=== PATIENT | female | born 1935 | race Caucasian/White ===

== ENCOUNTER → 2018-03-22 | Day surgery (SDC) | payer OTHER ==
--- NOTE | 2018-03-21 09:40 | Diagnostic Imaging Report ---
PROCEDURE: X-RAY CHEST, TWO VIEWS COMPARISON: None. INDICATIONS: PRE-OP FINDINGS: Lungs remain well aerated. No focal consolidation, pleural effusion, or pneumothorax. Unchanged eventration of the right hemidiaphragm and multiple left upper lobe calcified granulomata. Stable cardiomediastinal contour with tortuosity of the thoracic aorta. Normal heart size without pulmonary edema. No acute osseous abnormalities. CONCLUSION: No acute cardiopulmonary abnormality. Dictated by: Jordan Davis M.D. on 03/21/2018 at 9:43 Electronically approved by: Jordan Davis M.D. on 03/21/2018 at 9:43
[2018-03-21 09:49] LABS: BASOPHILS % 0.3 % (0.0-1.0); EOSINOPHILS # (AUTO) 0.1 (0.0-0.4); EOSINOPHILS % 2.4 % (0.0-6.0); HEMATOCRIT 39.2 % (34.2-44.1); HEMOGLOBIN 13.1 g/dL (12.0-16.0); LYMPHOCYTES # (AUTO) 1.6 (1.0-3.2); LYMPHOCYTES % 27.7 % (18.0-39.1); MEAN CORPUSCULAR HEMOGLOBIN 32.6 pg (28-32); MEAN CORPUSCULAR HGB CONC 33.4 g/dL (31-35); MEAN CORPUSCULAR VOLUME 97.5 fL (81-99); MONOCYTES # (AUTO) 0.5 (0.2-0.8); MONOCYTES % 8.8 % (4.4-11.3); NEUTROPHILS # (AUTO) 3.5 (2.1-6.9); NEUTROPHILS % 60.6 % (38.7-80.0); PLATELET COUNT 159 x10e3/uL (140-360); RED BLOOD COUNT 4.02 x10e6/uL (3.6-5.1); RED CELL DISTRIBUTION WIDTH 12.9 % (11.7-14.4)
[2018-03-21 10:04] LABS: ANION GAP 12.5 mmol/L (8-16); BLOOD UREA NITROGEN 17 mg/dL (7-26); BUN/CREATININE RATIO 24 (6-25); CALCIUM 9.4 mg/dL (8.4-10.2); CARBON DIOXIDE 28 mmol/L (22-29); CHLORIDE 106 mmol/L (98-107); CREATININE, SERUM 0.71 mg/dL (0.57-1.11); EST GLOMERULAR FILTRATION RATE > 60 ML/MIN (60-); GLUCOSE 95 mg/dL (74-118); POTASSIUM 4.5 mmol/L (3.5-5.1); SODIUM 142 mmol/L (136-145)
[~2018-03-22] MED LIST: ACETAMINOPHEN 1000 MG/100 ML IV ONE; ALENDRONATE SOD70 MG PO; ASPIR 8181 MG PO; B COMPLEX WITH1 EACH PO; B12 SL; BIOTIN2500 MCG PO; BUPIVACAINE HCL 0.5% INJ 30 ML VIAL INJ ONE; CALCIUM600 MG PO; CALTRATE-600 W1 EACH PO; CEFAZOLIN SOD 1 GM VIAL ONE; CENTRUM SILVER1 EAC3 PO; CLOTRIMAZOLE-BE15 GM TOP; DEXAMETHASONE SOD PHOS INJ 4 MG/ML VIAL ONE; FENTANYL CITRATE/PF 100MCG/2 ML INJ ONE; FISH OIL 1,0001 EAC1 PO; FUROSEMIDE40 MG PO; LIDOCAINE HCL 2% LOCAL INJ 5 ML SDV VIAL INJ ONE; LOVENOX40 MG/0.4 SC; MAGNESIUM OXID400 MG PO; MELOXICAM15 MG PO; MUCINEX DM ER1 EACH PO; NORCO 7.5-3251 EACH PO; PANTOPRAZOLE SO40 MG PO; PHENYTOIN SODI300 MG PO; PRAVASTATIN SOD20 MG PO; PROPOFOL IV EMULSION 10 MG/ML 20 ML VIAL ONE; SEVOFLURANE INHAL SOLN 250 ML PEN BTL ONE; SULFAMETHOXAZO1 EAC1 PO; TYLENOL WITH C1 EACH PO; VIT D3 PO; VITAMIN E PO; [UNRECOGNIZED DRUG - OTHER] SL
--- OUTSIDE RECORDS SUMMARY | 2018-03-22 06:54 | XMS REPORT ---
Author [facility] Address Unknown Phone Unavailable Care Team Providers Care Company Marker Name Role Phone JOSEPHINEMILKA Unavailable Unavailable Problems This patient has no known problems. Allergies, Adverse Reactions, Alerts This patient has no known allergies or adverse reactions. Medications This patient has no known medications. Results Test Description Test Time Test Comments Text Results Atomic Results Result Comments CHEST 2 VIEWS [place] [id number] [place] [address] Patient Name: VISHAL CUEVA MR #: [id number] : 1935 Age/Sex: 83/F Req # : [id number] Adm Physician: Ordered by: SANDEEP YAN MD Report # : [id number] Location: OR Room/Bed: Procedure: [id number] DX/CHEST 2 VIEWS Exam Date: 03/21/18 Exam Time : 914 REPORT STATUS: Signed PROCEDURE: X-RAY CHEST, TWO VIEWS COMPARISON: None. INDICATIONS: PRE-OP FINDINGS: Lungs remain well aerated. No focal consolidation, pleural effusion, or pneumothorax. Unchanged eventration of the right hemidiaphragm and multiple left upper lobe calcified granulomata. Stable cardiomediastinal contour with tortuosity of the thoracic aorta. Normal heart size without pulmonary edema. No acute osseous abnormalities. CONCLUSION: No acute cardiopulmonary abnormality. Dictated by: Milka Sultana M.D. on 03/21/2018 at 9:43 Electronically approved by: Milka Sultana M.D. on 03/21/2018 at 9:43 Dictated By: MILKA SULTANA MD 2 Transcribed By: FRANSICO on 03/21/18942 COPY TO: SANDEEP YAN MD
--- NOTE | 2018-03-22 13:25 | Operative Report ---
DATE OF PROCEDURE: March 22, 2018 MATZO FORMING MACHINE OPERATOR: Humberto Colbert PA-C The patient was brought to the operating room for induction of anesthesia. Throughout this case, my PA's assistance was necessary for retraction of soft tissue and positioning of the extremity. This allows for efficient and technically successful execution of the operation and is considered medically necessary. 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 PROCEDURE: Right elbow excisional biopsy and the ulnar nerve decompression. 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 She has evidence of intrinsic atrophy in her right hand. She has numbness in the 4th and 5th digit. 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 The risks and benefits of surgical decompression and excisional biopsy have been explained. She states she understands and wishes to proceed. DESCRIPTION OF PROCEDURE: The patient was brought to the operating room and placed under general anesthetic. Her right upper extremity was prepped and draped in a sterile manner. A preoperative time out was performed. Extremity was exsanguinated and a proximal tourniquet was inflated to 250 mmHg. A curvilinear incision was made over the posteromedial aspect of the right elbow. Blunt dissection was carried down to the cubital tunnel. There was an associated 2 cm x 3 cm cystic mass encroaching the nerve. This was excised en bloc. This was sent to pathology. The ulnar nerve was then decompressed. A pair of tenotomy scissors was used to free up the nerve. A half inch Estefania drain was used to assist in mobilizing the nerve. The nerve was freed up the entire length of the cubital tunnel. There was noted to be quite severe stricture on the nerve. The nerve appeared somewhat blanched at the area of the tightest stricture. The wound was then irrigated. The skin was closed with subcuticular Vicryl and nylon stitches. A sterile bandage and a posterior splint were applied. The patient was extubated and transported to the recovery room in stable condition. There was no blood loss and all needle and sponge counts were correct. Job#: [id number] FRANK
== END | disposition home or self-care (01) ==
LOC: OR 06:52
PROVIDERS: ATTEND Specialist
DX: G56.21 Lesion of ulnar nerve, right upper limb (principal); M67.421 Ganglion, right elbow; R56.9 Unspecified convulsions; I44.0 Atrioventricular block, first degree; R05 Cough; Z01.810 Encounter for preprocedural cardiovascular examination; Z01.812 Encounter for preprocedural laboratory examination; Z01.818 Encounter for other preprocedural examination; Z79.82 Long term (current) use of aspirin; Z96.651 Presence of right artificial knee joint; Z96.642 Presence of left artificial hip joint; Z68.32 Body mass index [BMI] 32.0-32.9, adult
CPT/HCPCS: 36415; 64718; 71046; 80048; 85025; 88305; 93005; J0690; 88304; J1100; J2001

== ENCOUNTER 2020-07-29 14:52 | Emergency (ER) | payer OTHER ==
[~2020-07-29] VITALS: Ht 172.7 cm; Wt 111.1 kg
[~2020-07-29 14:52] MED LIST changes: -ACETAMINOPHEN 1000 MG/100 ML IV ONE; -BUPIVACAINE HCL 0.5% INJ 30 ML VIAL INJ ONE; -CEFAZOLIN SOD 1 GM VIAL ONE; -DEXAMETHASONE SOD PHOS INJ 4 MG/ML VIAL ONE; -FENTANYL CITRATE/PF 100MCG/2 ML INJ ONE; -LIDOCAINE HCL 2% LOCAL INJ 5 ML SDV VIAL INJ ONE; -PROPOFOL IV EMULSION 10 MG/ML 20 ML VIAL ONE; -SEVOFLURANE INHAL SOLN 250 ML PEN BTL ONE
--- NOTE | 2020-07-29 15:36 | Emergency Department Note ---
History of Present Illnes History of Present Illness Chief Complaint: Abdominal Complaints History of Present Illness This is a 85 year old female Chief Complaint Comment PATIENT IN FROM HOME WITH COMPLAINTS OF LOOSE STOOLS FOR OVER A WEEK; PATIENT DENIES NAUSEA, VOMITING, OR PAIN. Historian: Patient, Family Member Arrival Mode: Car Pharmacy Specialist Required: No Onset (how long ago): week(s) (1) Radiation: Reports non-radiation Severity: mild Onset quality: gradual Duration (how long): week(s) (1) Timing of current episode: constant Progression: worsening Chronicity: new Context: Denies recent illness, Denies recent surgery Relieving factors: none Exacerbating factors: none Associated symptoms: Reports denies other symptoms Treatments prior to arrival: none (ALYSSA PATRICIA MD) Past Medical/Family History Physician Review I have reviewed the patient's past medical and family history. Any updates have been documented here. (ALYSSA PATRICIA MD) Past Medical History Recent Fever: No Clinical Suspicion of Infectio: No New/Unexplained Change in Ment: No (ALYSSA PATRICIA MD) Review of Systems Review of Systems Constitutional: Reports no symptoms, Reports weakness (Generalized) EENTM: Reports no symptoms Cardiovascular: Reports no symptoms Respiratory: Reports no symptoms Gastrointestinal: Reports as per HPI, Reports diarrhea; Denies nausea, Denies vomiting Genitourinary: Reports no symptoms Musculoskeletal: Reports no symptoms Integumentary: Reports no symptoms Neurological: Reports no symptoms Psychological: Reports no symptoms Endocrine: Reports no symptoms Hematological/Lymphatic: Reports no symptoms (ALYSSA PATRICIA MD) Physical Exam Related Data Allergies: Coded Allergies: No Known Allergies (Verified , 06/17/16) Triage Vital Signs Vital Signs Date Time Temp Pulse Resp B/P (MAP) Pulse Ox O2 Delivery O2 Flow Rate FiO2 07/29/20 15:13 98.6 76 20 126/96 100 Room Air Vital signs reviewed: Yes (ALYSSA PATRICIA MD) Physical Exam CONSTITUTIONAL Constitutional: Present well-developed, Present well-nourished HENT HENT: Present normocephalic, Present atraumatic, Present oropharynx clear/moist, Present nose normal HENT L/R: Present left ext ear normal, Present right ext ear normal EYES Eyes: Reports PERRL, Reports conjunctivae normal NECK Neck: Present ROM normal PULMONARY Pulmonary: Present effort normal, Present breath sounds normal CARDIOVASCULAR Cardiovascular: Present regular rhythm, Present heart sounds normal, Present capillary refill normal, Present normal rate GASTROINTESTINAL Abdominal: Present soft, Present nontender, Present bowel sounds normal GENITOURINARY Genitourinary: Present exam deferred SKIN Skin: Present warm, Present dry MUSCULOSKELETAL Musculoskeletal: Present ROM normal NEUROLOGICAL Neurological: Present alert, Present oriented x 3, Present no gross motor or sensory deficits PSYCHOLOGICAL Psychological: Present mood/affect normal, Present judgement normal (ALYSSA PATRICIA MD) Results Laboratory Lab results reviewed: Yes (ALYSSA PATRICIA MD) Imaging Imaging results reviewed: Yes (ALYSSA PATRICIA MD) Imaging results reviewed: Yes Impressions CT Abdomen And Pelvis with Intravenous Contrast INDICATION: ^Diarrhea ^[id number] ^1800 TECHNIQUE: Thin collimation axial images obtained from the diaphragm to the level of the pubic symphysis following the uneventful administration of 100 cc of low osmolar, nonionic intravenous contrast. Dose reduction techniques used: Automated exposure control, adjustment of the mAs and/or kVp according to patient size, standardized low-dose protocol, and/or iterative reconstruction technique. RADIATION DOSE: Total DLP: 755.11 mGy*cm Estimated effective dose: (DLP x 0.015 x size factor) mSv CTDIvol has been reviewed. It is below the limits set by the Radiation Protocol Committee (RPC). COMPARISON: None. ABDOMEN FINDINGS: Lung Bases: Mild hyperinflation suggestive of small airways disease. Visualized portion of the mediastinum is normal. Liver: Normal attenuation. No evidence for soft tissue mass. Tiny parenchymal calculi. Gallbladder: Absent. No biliary ductal dilatation. Pancreas: Normal attenuation without mass or ductal dilatation. Spleen: Multiple calcified granulomata. The spleen is top normal in size. Adrenal Glands: No evidence for mass. Kidneys: Right: Lower pole cyst measures 4.4 x 3.9 cm. Peripelvic cysts may be present. No intrarenal calculi. Left: Multiple peripelvic cysts. Low attenuating lesion in the posterior interpolar cortex of the left kidney measures 11 mm and is too small to characterize. Lymph Nodes: No lymphadenopathy. Aorta: Normal in diameter with scattered calcifications. The descending thoracic aorta is tortuous PELVIS FINDINGS: Bowel: Stomach: Collapsed but otherwise normal in appearance. Small Bowel: Normal in caliber with normal wall thickness. Large Bowel: Diverticulosis coli. No associated inflammation. Appendix: Normal. Bladder: Poorly visualized due to bilateral hip prostheses. The uterus is absent. No adnexal mass Peritoneum/retroperitoneum: No free fluid or fluid collection.. Bones: Bilateral hip prostheses are in anatomic alignment without associated fracture. Moderate diffuse degenerative changes of the lumbar spine. There is height loss of the L3 vertebral body of approximately 40%. Healing/healed right rib fractures at their lateral aspects. Soft tissues: Calcifications in the posterior right flank in the subcutaneous tissues measure up to 2 cm. IMPRESSION: 1. Diverticulosis coli. No CT evidence of acute diverticulitis. No bowel obstruction. 2. Right renal cyst. Potential left renal cyst. Recommend further characterization with renal ultrasound to confirm cystic contents. 3. Bilateral peripelvic cysts. 4. Healed granulomatous inflammation. 5. Compression fracture of L3 appears chronic. Moderate degenerative changes of the lumbar spine. No evidence of spinal canal impingement. Signed by: Dr. Susy Santos MD on 07/29/2020 6:53 PM Dictated By: SUSY SANTOS MD 52 Transcribed By: MEI on 07/29/201852 COPY TO: ALYSSA PATRICIA MD~ (CINDY SANDOVAL MD) Diagnostics Tests Diagnostic test(s) reviewed: Yes (ALYSSA PATRICIA MD) Procedures 12 Lead ECG Interpretation ECG Interpretation : Pharmacy Specialist: Interpreted by ED physician Date: Jul 29, 2020 Rhythm: sinus rhythm Rate: normal QRS axis: normal Conduction: 1st degree ST segments normal: Yes T waves normal: Yes Clinical Impression: abnormal ECG (ALYSSA PATRICIA MD) Assessment & Plan Medical Decision Making MDM 85-year-old female presents for diarrhea and weakness 1 week. She denies abdominal pain or any other symptoms. Initial differential includes enteritis versus diverticulitis versus dehydration versus electrolyte abnormality. Labs unremarkable, CT pending. Given 1L NS. Handed patient off to Dr. Sandoval @ 1800 (ALYSSA PATRICIA MD) Reassessment Reassessment time: 15:56 Reassessment Well appearing, NAD (ALYSSA PATRICIA MD) Assessment & Plan Final Impression: (1) Diarrhea (ALYSSA PATRICIA MD) Final Impression: (1) Diarrhea (2) UTI (urinary tract infection) (CINDY SANDOVAL MD) Depart Disposition: HOME, SELF-CARE Last Vital Signs Date Time Temp Pulse Resp B/P (MAP) Pulse Ox O2 Delivery O2 Flow Rate FiO2 07/29/20 15:13 98.6 76 20 126/96 100 Room Air (ALYSSA PATRICIA MD) Home Meds Reported Medications Biotin (BIOTIN) 2,500 Mcg Capsule, 5000 MG PO DAILY 03/21/18 [Vit D3] No Conflict Check, 1 TAB PO DAILY 03/21/18 Furosemide (FUROSEMIDE) 40 Mg Tablet, 40 MG PO BID, #30 TAB 03/21/18 Guaifenesin/Dextromethorphan (MUCINEX DM ER 600-30 MG TABLET) 1 Each Tab.er.12h, 1 EACH PO Q12H, TAB 06/17/16 Mu-Vits-Min Th/Lycopene/Lutein (CENTRUM SILVER TABLET) 1 Each Tablet, PO DAILY 06/17/16 [Vitamin E] No Conflict Check, 1000 MG PO DAILY 06/17/16 Calcium Carbonate/Vitamin D3 (CALTRATE-600 WITH VIT D TAB) 1 Each Tablet, PO DAILY 06/15/14 Phenytoin Sodium Extended (PHENYTOIN SODIUM EXTENDED) 300 Mg Capsule, 500 MG PO DAILY 03/01/14 [place]-3 Fatty Acids/Fish Oil (FISH OIL 1,000 MG SOFTGEL) 1 Each Capsule, 1200 MG PO DAILY 03/01/14 Aspirin (ASPIR 81) 81 Mg Tablet.dr, 81 MG PO DAILY 03/01/14 ALYSSA PATRICIA MD Jul 29, 2020 15:36 CINDY SANDOVAL MD Jul 29, 2020 20:03
--- OUTSIDE RECORDS SUMMARY | 2020-07-29 15:41 | XMS REPORT | Continuity of Care Document ---
Author Author [facility] Organization [facility] Address [address] [place] [id number] Phone Unavailable Care Team Providers Care International Exchange Coordinator Name Role Phone MILKA BURTON Unavailable Problems This patient has no known problems. Allergies, Adverse Reactions, Alerts This patient has no known allergies or adverse reactions. Medications This patient has no known medications. Procedures This patient has no known procedures. Results Test Description Test Time Test Comments Results Result Comments Source CHEST [address] [facility] [address] [address] Patient Name: VISHAL CUEVA MR #: [id number] : 1935 Age/Sex: 83/F Req #: [id number] Adm Physician: Ordered by: SANDEEP YAN MD Report #: [id number] Location: OR Room/Bed: Procedure: [id number] DX/CHEST 2 VIEWS Exam Date: 03/21/18 Exam Time: 914 REPORT STATUS: Signed PROCEDURE: X-RAY CHEST, TWO VIEWS COMPARISON: None. INDICATIONS: PRE-OP FINDINGS: Lungs remain well aerated. No focal consolidation, pleural effusion, or pneumothorax. Unchanged eventration of the right hemidiaphragm and multiple left upper lobe calcified granulomata. Stable cardiomediastinal contour with tortuosity of the thoracic aorta. Normal heart size without pulmonary edema. No acute osseous abn ormalities. CONCLUSION: No acute cardiopulmonary abnormality. Dictated by: Milka Sultana M.D. on 03/21/2018 at 9:43 Electronically approved by: Milka Sultana M.D. on 03/21/2018 at 9:43 Dictated By: MILKA SULTANA MD 2 Transcribed By: FRANSICO on 03/21/18942 COPY TO: SANDEEP YAN MD
[2020-07-29] MEDS ORDERED: SODIUM CHLORIDE 0.9% 1000ML 1,000 ML IV SCH (15:45)
[2020-07-29 15:57] LABS: BASOPHILS % 0.5 % (0.0-1.0); EOSINOPHILS # (AUTO) 0.1 (0.0-0.4); EOSINOPHILS % 1.4 % (0.0-6.0); HEMATOCRIT 35.2 % (34.2-44.1); HEMOGLOBIN 11.4 g/dL (12.0-16.0); LYMPHOCYTES # (AUTO) 1.2 (1.0-3.2); MEAN CORPUSCULAR HEMOGLOBIN 30.8 pg (28-32); MEAN CORPUSCULAR HGB CONC 32.4 g/dL (31-35); MEAN CORPUSCULAR VOLUME 95.1 fL (81-99); MONOCYTES # (AUTO) 0.4 (0.2-0.8); MONOCYTES % 5.5 % (4.4-11.3); NEUTROPHILS # (AUTO) 4.7 (2.1-6.9); NEUTROPHILS % 73.4 % (38.7-80.0); PLATELET COUNT 199 x10e3/uL (140-360); RED CELL DISTRIBUTION WIDTH 13.2 % (11.7-14.4)
[2020-07-29 17:31] LABS: ALANINE AMINOTRANSFERASE 9 IU/L (0-55); ALBUMIN 3.9 g/dL (3.5-5.0); ALBUMIN/GLOBULIN RATIO 1.6 (0.8-2.0); ALKALINE PHOSPHATASE 88 IU/L (40-150); ANION GAP 12.6 mmol/L (8-16); BLOOD UREA NITROGEN 11 mg/dL (7-26); BUN/CREATININE RATIO 16 (6-25); CALCIUM 8.8 mg/dL (8.4-10.2); CARBON DIOXIDE 25 mmol/L (22-29); CHLORIDE 107 mmol/L (98-107); CREATININE, SERUM 0.68 mg/dL (0.57-1.11); EST GLOMERULAR FILTRATION RATE > 60 ML/MIN (60-); GLUCOSE 93 mg/dL (74-118); POTASSIUM 3.6 mmol/L (3.5-5.1); SODIUM 141 mmol/L (136-145)
[2020-07-29 17:47] LABS: CLARITY,URINE CLEAR (CLEAR); COLOR,URINE YELLOW (YELLOW); LEUKOCYTE ESTERASE ,URINE NEGATIVE (NEGATIVE)
[2020-07-29 17:48] LABS: BILIRUBIN,URINE NEGATIVE (NEGATIVE); KETONES,URINE NEGATIVE (NEGATIVE); NITRITE,URINE POSITIVE (NEGATIVE); PROTEIN,URINE DIPSTICK NEGATIVE (NEGATIVE); URINE UROBILINOGEN 0.2 mg/dL (0.2 - 1)
[2020-07-29 18:03] LABS: BACTERIA,URINE MANY /HPF; EPITHELIAL CELLS,URINE FEW /LPF; MUCUS,URINE RARE (RARE); RBC,URINE 0-5 /HPF (0-5)
[2020-07-29] MEDS ORDERED: CEFTRIAXONE SOD 1 GM/NS 50 ML 50 ML IV ONE (18:15)
[2020-07-29] MEDS ORDERED: IOPAMIDOL 370 MG/ML 200 ML INFUS..BTL INJ ONE (18:20)
[2020-07-29] MEDS ORDERED: SODIUM CHLORIDE 0.9% 50ML 50 ML ONE (18:20)
--- NOTE | 2020-07-29 18:56 | Diagnostic Imaging Report ---
CT Abdomen And Pelvis with Intravenous Contrast INDICATION: ^Diarrhea ^[id number] ^1800 TECHNIQUE: Thin collimation axial images obtained from the diaphragm to the level of the pubic symphysis following the uneventful administration of 100 cc of low osmolar, nonionic intravenous contrast. Dose reduction techniques used: Automated exposure control, adjustment of the mAs and/or kVp according to patient size, standardized low-dose protocol, and/or iterative reconstruction technique. RADIATION DOSE: Total DLP: 755.11 mGy*cm Estimated effective dose: (DLP x 0.015 x size factor) mSv CTDIvol has been reviewed. It is below the limits set by the Radiation Protocol Committee (RPC). COMPARISON: None. ABDOMEN FINDINGS: Lung Bases: Mild hyperinflation suggestive of small airways disease. Visualized portion of the mediastinum is normal. Liver: Normal attenuation. No evidence for soft tissue mass. Tiny parenchymal calculi. Gallbladder: Absent. No biliary ductal dilatation. Pancreas: Normal attenuation without mass or ductal dilatation. Spleen: Multiple calcified granulomata. The spleen is top normal in size. Adrenal Glands: No evidence for mass. Kidneys: Right: Lower pole cyst measures 4.4 x 3.9 cm. Peripelvic cysts may be present. No intrarenal calculi. Left: Multiple peripelvic cysts. Low attenuating lesion in the posterior interpolar cortex of the left kidney measures 11 mm and is too small to characterize. Lymph Nodes: No lymphadenopathy. Aorta: Normal in diameter with scattered calcifications. The descending thoracic aorta is tortuous PELVIS FINDINGS: Bowel: Stomach: Collapsed but otherwise normal in appearance. Small Bowel: Normal in caliber with normal wall thickness. Large Bowel: Diverticulosis coli. No associated inflammation. Appendix: Normal. Bladder: Poorly visualized due to bilateral hip prostheses. The uterus is absent. No adnexal mass Peritoneum/retroperitoneum: No free fluid or fluid collection.. Bones: Bilateral hip prostheses are in anatomic alignment without associated fracture. Moderate diffuse degenerative changes of the lumbar spine. There is height loss of the L3 vertebral body of approximately 40%. Healing/healed right rib fractures at their lateral aspects. Soft tissues: Calcifications in the posterior right flank in the subcutaneous tissues measure up to 2 cm. IMPRESSION: 1. Diverticulosis coli. No CT evidence of acute diverticulitis. No bowel obstruction. 2. Right renal cyst. Potential left renal cyst. Recommend further characterization with renal ultrasound to confirm cystic contents. 3. Bilateral peripelvic cysts. 4. Healed granulomatous inflammation. 5. Compression fracture of L3 appears chronic. Moderate degenerative changes of the lumbar spine. No evidence of spinal canal impingement. Signed by: Dr. Fina Santos MD on 07/29/2020 6:53 PM
[2020-07-29 20:34] VITALS: BP 12/71
== END 2020-07-29 20:40 | disposition home or self-care (01) ==
LOC: ER 15:30
DX: R19.7 Diarrhea, unspecified (principal); N39.0 Urinary tract infection, site not specified; R53.1 Weakness; N28.1 Cyst of kidney, acquired
CPT/HCPCS: 36415; 74177; 80053; 81001; 83690; 83880; 84443; 84484; 85025; 87086; 93005; 99284; J0696; J7030; Q9967

== ENCOUNTER 2022-05-02 04:10 | Emergency (ER) | payer MEDICARE, OTHER ==
[~2022-05-02] VITALS: Ht 172.7 cm; Wt 90.7 kg
[2022-05-02 05:00] LABS: BASOPHILS % 0.2 % (0.0-1.0); EOSINOPHILS # (AUTO) 0.2 (0.0-0.4); EOSINOPHILS % 2.7 % (0.0-6.0); HEMATOCRIT 37.2 % (34.2-44.1); HEMOGLOBIN 11.6 g/dL (12.0-16.0); LYMPHOCYTES # (AUTO) 1.6 (1.0-3.2); LYMPHOCYTES % 19.9 % (18.0-39.1); MEAN CORPUSCULAR HEMOGLOBIN 31.5 pg (28-32); MEAN CORPUSCULAR HGB CONC 31.2 g/dL (31-35); MEAN CORPUSCULAR VOLUME 101.1 fL (81-99); MONOCYTES # (AUTO) 0.5 (0.2-0.8); MONOCYTES % 6.4 % (4.4-11.3); NEUTROPHILS # (AUTO) 5.8 (2.1-6.9); NEUTROPHILS % 70.4 % (38.7-80.0); PLATELET COUNT 163 x10e3/uL (140-360); RED BLOOD COUNT 3.68 x10e6/uL (3.6-5.1); RED CELL DISTRIBUTION WIDTH 13.3 % (11.7-14.4)
[2022-05-02 05:18] LABS: ALANINE AMINOTRANSFERASE 10 IU/L (0-55); ALBUMIN 3.5 g/dL (3.5-5.0); ALKALINE PHOSPHATASE 98 IU/L (40-150); ANION GAP 17.8 mmol/L (8-16); BLOOD UREA NITROGEN 24 mg/dL (7-26); BUN/CREATININE RATIO 26 (6-25); CALCIUM 8.8 mg/dL (8.4-10.2); CARBON DIOXIDE 25 mmol/L (22-29); CHLORIDE 104 mmol/L (98-107); CREATINE KINASE 76 IU/L (29-168); CREATININE, SERUM 0.92 mg/dL (0.57-1.11); GLUCOSE 89 mg/dL (74-118); POTASSIUM 4.8 mmol/L (3.5-5.1); SODIUM 142 mmol/L (136-145)
[2022-05-02 05:39] LABS: CLARITY,URINE CLEAR (CLEAR); COLOR,URINE YELLOW (YELLOW)
[2022-05-02 05:40] LABS: KETONES,URINE NEGATIVE (NEGATIVE); LEUKOCYTE ESTERASE ,URINE NEGATIVE (NEGATIVE); NITRITE,URINE NEGATIVE (NEGATIVE); PROTEIN,URINE DIPSTICK NEGATIVE (NEGATIVE); URINE UROBILINOGEN 0.2 mg/dL (0.2 - 1)
[2022-05-02 05:47] LABS: BACTERIA,URINE FEW /HPF; EPITHELIAL CELLS,URINE FEW /LPF; RBC,URINE 0-5 /HPF (0-5); WBC,URINE (MAN) 0-5 /HPF (0-5)
[2022-05-02] MEDS ORDERED: IOPAMIDOL 370 MG/ML 100 ML INFUS..BTL INJ ONE (05:59)
[2022-05-02] MEDS ORDERED: OMEPRAZOLE40 MG PO (07:52)
== END 2022-05-02 09:08 | disposition home or self-care (01) ==
LOC: ER 04:15
DX: R10.10 Upper abdominal pain, unspecified (principal); K29.70 Gastritis, unspecified, without bleeding; G40.909 Epilepsy, unspecified, not intractable, without status epilepticus; G62.9 Polyneuropathy, unspecified
CPT/HCPCS: 36415; 71045; 74177; 80053; 81001; 82550; 82553; 83690; 84484; 85025; 93005; 99284; Q9967

== ENCOUNTER 2022-11-07 18:44 | Inpatient (IN) | payer MEDICARE ==
[~2022-11-07] VITALS: Ht 167.6 cm; Wt 90.7 kg
[~2022-11-07 18:44] MED LIST changes: +OMEPRAZOLE40 MG PO
[2022-11-07 19:15] LABS: BASOPHILS % 0.3 % (0.0-1.0); EOSINOPHILS # (AUTO) 0.2 (0.0-0.4); HEMATOCRIT 34.1 % (34.2-44.1); HEMOGLOBIN 10.3 g/dL (12.0-16.0); LYMPHOCYTES # (AUTO) 2.3 (1.0-3.2); LYMPHOCYTES % 19.4 % (18.0-39.1); MEAN CORPUSCULAR HEMOGLOBIN 28.5 pg (28-32); MEAN CORPUSCULAR HGB CONC 30.2 g/dL (31-35); MEAN CORPUSCULAR VOLUME 94.5 fL (81-99); MONOCYTES # (AUTO) 0.9 (0.2-0.8); MONOCYTES % 7.8 % (4.4-11.3); NEUTROPHILS # (AUTO) 8.2 (2.1-6.9); NEUTROPHILS % 70.1 % (38.7-80.0); PLATELET COUNT 238 x10e3/uL (140-360); RED BLOOD COUNT 3.61 x10e6/uL (3.6-5.1)
[2022-11-07] MEDS ORDERED: ASPIRIN 81 MG CHEW TAB PO ONE (19:15)
[2022-11-07] MEDS ORDERED: SODIUM CHLORIDE 0.9% 1000ML 1,000 ML IV ONE ×3 (19:30→22:00)
[2022-11-07 19:33] LABS: ALBUMIN 2.5 g/dL (3.5-5.0); ALBUMIN/GLOBULIN RATIO 0.8 (0.8-2.0); ALKALINE PHOSPHATASE 96 IU/L (40-150); ANION GAP 15.5 mmol/L (8-16); BLOOD UREA NITROGEN 12 mg/dL (7-26); BUN/CREATININE RATIO 16 (6-25); CALCIUM 8.6 mg/dL (8.4-10.2); CARBON DIOXIDE 26 mmol/L (22-29); CHLORIDE 100 mmol/L (98-107); CREATINE KINASE 12 IU/L (29-168); CREATININE, SERUM 0.76 mg/dL (0.57-1.11); GLUCOSE 118 mg/dL (74-118); SODIUM 139 mmol/L (136-145)
[2022-11-07 19:41] LABS: ALANINE AMINOTRANSFERASE < 6 IU/L (0-55); POTASSIUM 2.5 mmol/L (3.5-5.1)
[2022-11-07] MEDS ORDERED: POTASSIUM CHLORIDE 20 MEQ TAB CR PO STA (19:42)
[2022-11-07] MEDS ORDERED: POTASSIUM CHLORIDE 20MEQ/100ML 100 ML IV STA (19:42)
[2022-11-07 19:49] LABS: B-TYPE NATRIURETIC PEPTIDE2 79.5 pg/mL (0-100)
[2022-11-07 21:25] LABS: CLARITY,URINE CLOUDY (CLEAR); COLOR,URINE YELLOW (YELLOW); LEUKOCYTE ESTERASE ,URINE LARGE (NEGATIVE); NITRITE,URINE NEGATIVE (NEGATIVE)
[2022-11-07 21:26] LABS: KETONES,URINE NEGATIVE (NEGATIVE); PROTEIN,URINE DIPSTICK NEGATIVE (NEGATIVE); URINE UROBILINOGEN 0.2 mg/dL (0.2 - 1)
[2022-11-07 21:51] LABS: BACTERIA,URINE MODERATE /HPF; EPITHELIAL CELLS,URINE FEW /LPF; WBC,URINE (MAN) >50 /HPF (0-5)
[2022-11-07] MEDS ORDERED: Vancomycin IV 1 GM in SODIUM CHLORIDE 0.9% 250ML 250 ML IV ONE (22:00)
[2022-11-07] MEDS ORDERED: SODIUM CHLORIDE 0.9% 1000ML 1,000 ML ONE (22:05)
[2022-11-07] MEDS: KCL 20MEQ/.9 SOD CHL 1,000 ML IV SCH (22:47)
[2022-11-07] MEDS: ALBUTEROL SULF 0.083% NEB SOLN 3 ML NEB NEB SCH (23:30)
[2022-11-07] MEDS ORDERED: ACETAMINOPHEN 325 MG TAB PO PRN (23:30)
[2022-11-08] VITALS (9 sets, daily range): BP systolic 100–130; BP diastolic 49–61
[2022-11-08] MEDS: ALBUTEROL SULF 0.083% NEB SOLN 3 ML NEB NEB SCH ×5 (02:25→18:50)
[2022-11-08 06:04] LABS: CREATINE KINASE MB 0.6 ng/mL (0-5.0)
[2022-11-08] MEDS: IPRATROPIUM BROMIDE 0.02% 2.5 ML NEB NEB SCH ×4 (07:00→19:35)
[2022-11-08] MEDS: KCL 20MEQ/.9 SOD CHL 1,000 ML IV SCH ×3 (08:17→22:03)
[2022-11-08 08:23] LABS: BASOPHILS % 0.2 % (0.0-1.0); EOSINOPHILS # (AUTO) 0.2 (0.0-0.4); EOSINOPHILS % 2.4 % (0.0-6.0); HEMATOCRIT 32.2 % (34.2-44.1); HEMOGLOBIN 9.1 g/dL (12.0-16.0); LYMPHOCYTES # (AUTO) 1.3 (1.0-3.2); LYMPHOCYTES % 16.6 % (18.0-39.1); MEAN CORPUSCULAR HEMOGLOBIN 28.2 pg (28-32); MEAN CORPUSCULAR HGB CONC 28.3 g/dL (31-35); MEAN CORPUSCULAR VOLUME 99.7 fL (81-99); MONOCYTES # (AUTO) 0.6 (0.2-0.8); NEUTROPHILS # (AUTO) 5.8 (2.1-6.9); NEUTROPHILS % 72.1 % (38.7-80.0); PLATELET COUNT 185 x10e3/uL (140-360); RED BLOOD COUNT 3.23 x10e6/uL (3.6-5.1); RED CELL DISTRIBUTION WIDTH 15.1 % (11.7-14.4)
[2022-11-08 08:38] LABS: ALBUMIN 2.1 g/dL (3.5-5.0); ALBUMIN/GLOBULIN RATIO 0.8 (0.8-2.0); ALKALINE PHOSPHATASE 79 IU/L (40-150); ANION GAP 15.1 mmol/L (8-16); BLOOD UREA NITROGEN 10 mg/dL (7-26); BUN/CREATININE RATIO 16 (6-25); CALCIUM 7.6 mg/dL (8.4-10.2); CARBON DIOXIDE 22 mmol/L (22-29); CHLORIDE 109 mmol/L (98-107); CREATININE, SERUM 0.63 mg/dL (0.57-1.11); GLUCOSE 111 mg/dL (74-118); POTASSIUM 3.1 mmol/L (3.5-5.1); SODIUM 143 mmol/L (136-145)
[2022-11-08 08:46] LABS: ALANINE AMINOTRANSFERASE < 6 IU/L (0-55)
[2022-11-08 13:43] LABS: CREATINE KINASE MB 0.6 ng/mL (0-5.0)
[2022-11-08] MEDS: GUAIFENESIN 600MG/DEXTROMETHORPHAN 30MG TABSR PO SCH (15:29)
[2022-11-08] MEDS ORDERED: MAGNESIUM SULFATE 2GM/50ML 50 ML IV ONE (16:30)
[2022-11-08] MEDS: ENOXAPARIN SOD INJ 40 MG/0.4 ML SYR SC SCH (16:58)
[2022-11-08 19:44] LABS: CREATINE KINASE MB 0.5 ng/mL (0-5.0)
[2022-11-08] MEDS ORDERED: Vancomycin IV 1 GM in SODIUM CHLORIDE 0.9% 250ML 250 ML IV SCH (22:00)
[2022-11-09] VITALS (7 sets, daily range): BP systolic 107–134; BP diastolic 54–82
[2022-11-09] MEDS: ALBUTEROL SULF 0.083% NEB SOLN 3 ML NEB NEB SCH ×4 (01:10→19:30)
[2022-11-09] MEDS: IPRATROPIUM BROMIDE 0.02% 2.5 ML NEB NEB SCH ×4 (01:10→19:30)
[2022-11-09] MEDS: GUAIFENESIN 600MG/DEXTROMETHORPHAN 30MG TABSR PO SCH ×2 (03:08→16:00)
[2022-11-09 06:03] LABS: BASOPHILS % 0.3 % (0.0-1.0); EOSINOPHILS # (AUTO) 0.4 (0.0-0.4); HEMOGLOBIN 8.8 g/dL (12.0-16.0); LYMPHOCYTES # (AUTO) 1.7 (1.0-3.2); LYMPHOCYTES % 18.4 % (18.0-39.1); MEAN CORPUSCULAR HEMOGLOBIN 28.1 pg (28-32); MEAN CORPUSCULAR HGB CONC 29.3 g/dL (31-35); MEAN CORPUSCULAR VOLUME 95.8 fL (81-99); MONOCYTES # (AUTO) 0.6 (0.2-0.8); MONOCYTES % 6.8 % (4.4-11.3); NEUTROPHILS # (AUTO) 6.4 (2.1-6.9); NEUTROPHILS % 69.8 % (38.7-80.0); PLATELET COUNT 192 x10e3/uL (140-360); RED BLOOD COUNT 3.13 x10e6/uL (3.6-5.1); RED CELL DISTRIBUTION WIDTH 15.3 % (11.7-14.4)
[2022-11-09 06:27] LABS: ANION GAP 13.2 mmol/L (8-16); CALCIUM 7.6 mg/dL (8.4-10.2); CREATININE, SERUM 0.54 mg/dL (0.57-1.11); POTASSIUM 3.2 mmol/L (3.5-5.1)
[2022-11-09] MEDS ORDERED: GUAIFENESIN/DEXTROMETHORPHAN LIQD 5 ML UDC NG PRN (09:00)
[2022-11-09 09:04] LABS: CHOL/HDL RATIO 5.2 (3.0-3.6)
[2022-11-09] MEDS: ASPIRIN 81 MG CHEW TAB PO SCH (09:16)
[2022-11-09] MEDS: PANTOPRAZOLE SOD 40 MG TABEC PO SCH (09:16)
[2022-11-09] MEDS: BENZONATATE 100 MG CAP PO SCH ×3 (09:18→20:37)
[2022-11-09] MEDS: LORATADINE 10 MG TAB PO SCH (09:18)
[2022-11-09] MEDS: KCL 20MEQ/.9 SOD CHL 1,000 ML IV SCH (16:55)
[2022-11-09] MEDS: ENOXAPARIN SOD INJ 40 MG/0.4 ML SYR SC SCH (17:00)
[2022-11-10] VITALS (7 sets, daily range): BP systolic 126–140; BP diastolic 71–80
[2022-11-10] MEDS: IPRATROPIUM BROMIDE 0.02% 2.5 ML NEB NEB SCH ×4 (01:10→19:00)
[2022-11-10] MEDS: ALBUTEROL SULF 0.083% NEB SOLN 3 ML NEB NEB SCH ×4 (01:10→19:00)
[2022-11-10] MEDS: GUAIFENESIN 600MG/DEXTROMETHORPHAN 30MG TABSR PO SCH ×2 (03:10→16:51)
[2022-11-10] MEDS: KCL 20MEQ/.9 SOD CHL 1,000 ML IV SCH ×3 (03:10→20:20)
[2022-11-10] MEDS: ASPIRIN 81 MG CHEW TAB PO SCH (09:28)
[2022-11-10] MEDS: BALSAM PERU/CASTOR OIL 60 GM OINT...G. TP SCH (09:28)
[2022-11-10] MEDS: BENZONATATE 100 MG CAP PO SCH ×3 (09:28→20:20)
[2022-11-10] MEDS: PANTOPRAZOLE SOD 40 MG TABEC PO SCH (09:28)
[2022-11-10] MEDS: LORATADINE 10 MG TAB PO SCH (09:28)
[2022-11-10] MEDS ORDERED: FUROSEMIDE INJ 10 MG/ML 2 ML VIAL IV ONE ×2 (13:00→17:00)
[2022-11-10] MEDS: ENOXAPARIN SOD INJ 40 MG/0.4 ML SYR SC SCH (16:52)
[2022-11-10] MEDS: AZITHROMYCIN 250 MG TAB PO SCH (20:20)
[2022-11-11] VITALS (8 sets, daily range): BP systolic 128–139; BP diastolic 61–83
[2022-11-11] MEDS: ALBUTEROL SULF 0.083% NEB SOLN 3 ML NEB NEB SCH ×4 (01:00→19:35)
[2022-11-11] MEDS: IPRATROPIUM BROMIDE 0.02% 2.5 ML NEB NEB SCH ×4 (01:00→19:35)
[2022-11-11] MEDS: GUAIFENESIN 600MG/DEXTROMETHORPHAN 30MG TABSR PO SCH ×2 (03:42→15:36)
[2022-11-11] MEDS: KCL 20MEQ/.9 SOD CHL 1,000 ML IV SCH ×2 (05:56→16:45)
[2022-11-11] MEDS: PANTOPRAZOLE SOD 40 MG TABEC PO SCH (09:30)
[2022-11-11] MEDS: ASPIRIN 81 MG CHEW TAB PO SCH (09:30)
[2022-11-11] MEDS: BALSAM PERU/CASTOR OIL 60 GM OINT...G. TP SCH (09:30)
[2022-11-11] MEDS: LORATADINE 10 MG TAB PO SCH (09:30)
[2022-11-11] MEDS: BENZONATATE 100 MG CAP PO SCH ×3 (09:30→20:13)
[2022-11-11] MEDS: ENOXAPARIN SOD INJ 40 MG/0.4 ML SYR SC SCH (16:45)
[2022-11-11] MEDS: AZITHROMYCIN 250 MG TAB PO SCH (20:13)
[2022-11-12] VITALS (8 sets, daily range): BP systolic 121–145; BP diastolic 74–81
[2022-11-12] MEDS: IPRATROPIUM BROMIDE 0.02% 2.5 ML NEB NEB SCH ×4 (01:00→19:00)
[2022-11-12] MEDS: ALBUTEROL SULF 0.083% NEB SOLN 3 ML NEB NEB SCH ×4 (01:00→19:00)
[2022-11-12] MEDS: KCL 20MEQ/.9 SOD CHL 1,000 ML IV SCH ×2 (02:45→16:49)
[2022-11-12] MEDS: GUAIFENESIN 600MG/DEXTROMETHORPHAN 30MG TABSR PO SCH ×3 (04:31→21:23)
[2022-11-12 08:13] LABS: BASOPHILS % 0.6 % (0.0-1.0); EOSINOPHILS # (AUTO) 0.6 (0.0-0.4); EOSINOPHILS % 8.3 % (0.0-6.0); HEMATOCRIT 33.9 % (34.2-44.1); HEMOGLOBIN 9.9 g/dL (12.0-16.0); LYMPHOCYTES # (AUTO) 1.4 (1.0-3.2); LYMPHOCYTES % 19.6 % (18.0-39.1); MEAN CORPUSCULAR HEMOGLOBIN 28.6 pg (28-32); MEAN CORPUSCULAR HGB CONC 29.2 g/dL (31-35); MONOCYTES # (AUTO) 0.4 (0.2-0.8); MONOCYTES % 5.3 % (4.4-11.3); NEUTROPHILS # (AUTO) 4.7 (2.1-6.9); NEUTROPHILS % 65.9 % (38.7-80.0); PLATELET COUNT 238 x10e3/uL (140-360); RED BLOOD COUNT 3.46 x10e6/uL (3.6-5.1); RED CELL DISTRIBUTION WIDTH 15.6 % (11.7-14.4)
[2022-11-12 08:24] LABS: ANION GAP 13.4 mmol/L (8-16); CALCIUM 8.3 mg/dL (8.4-10.2); CREATININE, SERUM 0.59 mg/dL (0.57-1.11); POTASSIUM 3.4 mmol/L (3.5-5.1)
[2022-11-12] MEDS: PANTOPRAZOLE SOD 40 MG TABEC PO SCH (08:55)
[2022-11-12] MEDS: ASPIRIN 81 MG CHEW TAB PO SCH (08:55)
[2022-11-12] MEDS: LORATADINE 10 MG TAB PO SCH (08:55)
[2022-11-12] MEDS: BALSAM PERU/CASTOR OIL 60 GM OINT...G. TP SCH (08:55)
[2022-11-12] MEDS: BENZONATATE 100 MG CAP PO SCH ×3 (08:55→21:23)
[2022-11-12] MEDS: ENOXAPARIN SOD INJ 40 MG/0.4 ML SYR SC SCH (16:49)
[2022-11-12] MEDS: AZITHROMYCIN 250 MG TAB PO SCH (21:24)
[2022-11-13] VITALS (8 sets, daily range): BP systolic 132–147; BP diastolic 74–87
[2022-11-13] MEDS: ALBUTEROL SULF 0.083% NEB SOLN 3 ML NEB NEB SCH ×4 (01:00→19:45)
[2022-11-13] MEDS: IPRATROPIUM BROMIDE 0.02% 2.5 ML NEB NEB SCH ×4 (01:00→19:45)
[2022-11-13] MEDS: KCL 20MEQ/.9 SOD CHL 1,000 ML IV SCH ×3 (02:37→18:45)
[2022-11-13] MEDS: ASPIRIN 81 MG CHEW TAB PO SCH (09:32)
[2022-11-13] MEDS: GUAIFENESIN 600MG/DEXTROMETHORPHAN 30MG TABSR PO SCH ×2 (09:32→20:34)
[2022-11-13] MEDS: LORATADINE 10 MG TAB PO SCH (09:32)
[2022-11-13] MEDS: PANTOPRAZOLE SOD 40 MG TABEC PO SCH (09:32)
[2022-11-13] MEDS: BENZONATATE 100 MG CAP PO SCH ×3 (09:33→20:34)
[2022-11-13] MEDS: BALSAM PERU/CASTOR OIL 60 GM OINT...G. TP SCH (09:34)
[2022-11-13] MEDS: AMPICILLIN TRIHYDRATE 500MG CAPSULE PO SCH ×3 (13:03→23:04)
[2022-11-13] MEDS ORDERED: AMPICILLIN TRI500 MG PO (14:01)
[2022-11-13] MEDS ORDERED: AZITHROMYCIN250 MG PO (14:01)
[2022-11-13] MEDS ORDERED: LORATADINE10 MG PO (14:01)
[2022-11-13] MEDS ORDERED: FUROSEMIDE40 MG PO (14:01)
[2022-11-13] MEDS ORDERED: Benzonatate PO (14:01)
[2022-11-13] MEDS: ENOXAPARIN SOD INJ 40 MG/0.4 ML SYR SC SCH (16:56)
[2022-11-13] MEDS: AZITHROMYCIN 250 MG TAB PO SCH (20:34)
[2022-11-14] MEDS: ALBUTEROL SULF 0.083% NEB SOLN 3 ML NEB NEB SCH ×3 (02:05→13:00)
[2022-11-14] MEDS: IPRATROPIUM BROMIDE 0.02% 2.5 ML NEB NEB SCH ×3 (02:05→13:00)
[2022-11-14 02:28] VITALS: BP 127/63
[2022-11-14] MEDS: KCL 20MEQ/.9 SOD CHL 1,000 ML IV SCH (04:05)
[2022-11-14] MEDS: AMPICILLIN TRIHYDRATE 500MG CAPSULE PO SCH ×2 (05:03→11:35)
[2022-11-14 06:25] VITALS: BP 128/69
[2022-11-14 08:23] VITALS: BP 140/79
[2022-11-14] MEDS: BENZONATATE 100 MG CAP PO SCH (10:30)
[2022-11-14] MEDS: GUAIFENESIN 600MG/DEXTROMETHORPHAN 30MG TABSR PO SCH (10:30)
[2022-11-14] MEDS: LORATADINE 10 MG TAB PO SCH (10:30)
[2022-11-14] MEDS: ASPIRIN 81 MG CHEW TAB PO SCH (10:30)
[2022-11-14] MEDS: PANTOPRAZOLE SOD 40 MG TABEC PO SCH (10:30)
[2022-11-14 12:09] VITALS: BP 130/73
[2022-11-14] MEDS: BALSAM PERU/CASTOR OIL 60 GM OINT...G. TP SCH (13:07)
== END 2022-11-14 15:06 | disposition home or self-care (01) | DRG 871 ==
LOC: ER 18:53 → ERHOLD 23:18 → MED/SURG3 11-08 01:14
PROVIDERS: ADMIT Internal Medicine; ATTEND Internal Medicine
PROC: 3E03329 Introduction of Other Anti-infective into Peripheral Vein, Percutaneous Approach (ICD-10-PCS; 2022-11-07)
PROC: 3E03329 Introduction of Other Anti-infective into Peripheral Vein, Percutaneous Approach (ICD-10-PCS; 2022-11-07)
PROC: 3E03329 Introduction of Other Anti-infective into Peripheral Vein, Percutaneous Approach (ICD-10-PCS; 2022-11-07)
PROC: 3E03329 Introduction of Other Anti-infective into Peripheral Vein, Percutaneous Approach (ICD-10-PCS; principal; 2022-11-08)
PROC: 3E03329 Introduction of Other Anti-infective into Peripheral Vein, Percutaneous Approach (ICD-10-PCS; 2022-11-08)
PROC: 5A0945A Assistance with Respiratory Ventilation, 24-96 Consecutive Hours, High Flow/Velocity Cannula (ICD-10-PCS; 2022-11-08)
PROC: 3E03329 Introduction of Other Anti-infective into Peripheral Vein, Percutaneous Approach (ICD-10-PCS; 2022-11-09)
PROC: 3E03329 Introduction of Other Anti-infective into Peripheral Vein, Percutaneous Approach (ICD-10-PCS; 2022-11-09)
PROC: 3E03329 Introduction of Other Anti-infective into Peripheral Vein, Percutaneous Approach (ICD-10-PCS; 2022-11-10)
PROC: 3E03329 Introduction of Other Anti-infective into Peripheral Vein, Percutaneous Approach (ICD-10-PCS; 2022-11-11)
PROC: 3E03329 Introduction of Other Anti-infective into Peripheral Vein, Percutaneous Approach (ICD-10-PCS; 2022-11-12)
PROC: 3E03329 Introduction of Other Anti-infective into Peripheral Vein, Percutaneous Approach (ICD-10-PCS; 2022-11-13)
DX: A41.81 Sepsis due to Enterococcus (principal); J18.9 Pneumonia, unspecified organism; N39.0 Urinary tract infection, site not specified; J90 Pleural effusion, not elsewhere classified; E87.6 Hypokalemia; J20.9 Acute bronchitis, unspecified; Z74.01 Bed confinement status; E66.9 Obesity, unspecified; M19.90 Unspecified osteoarthritis, unspecified site; G62.9 Polyneuropathy, unspecified; K21.9 Gastro-esophageal reflux disease without esophagitis; G40.909 Epilepsy, unspecified, not intractable, without status epilepticus; R53.81 Other malaise; Z68.32 Body mass index [BMI] 32.0-32.9, adult; Z90.49 Acquired absence of other specified parts of digestive tract; Z90.710 Acquired absence of both cervix and uterus; Z96.643 Presence of artificial hip joint, bilateral; Z96.659 Presence of unspecified artificial knee joint; Z98.890 Other specified postprocedural states; Z66 Do not resuscitate; Z87.81 Personal history of (healed) traumatic fracture; Z82.49 Family history of ischemic heart disease and other diseases of the circulatory system; Z98.49 Cataract extraction status, unspecified eye; Z79.82 Long term (current) use of aspirin; Z79.899 Other long term (current) drug therapy
CPT/HCPCS: 36415; 71045; 80048; 80053; 80061; 81001; 82550; 82553; 83036; 83605; 83735; 83880; 84132; 84484; 85025; 87040; 87086; 87186; 93005; 94640; 94760; 94799; 96361; 99252; 99284; J0456; J0696; J1650; J1940; J3370; J3475; J3480; J7030; J7050